=== PATIENT | female | born 1980 | race Caucasian/White ===

== ENCOUNTER 2018-08-08 15:59 | Emergency (ER) | payer MEDICAID ==
--- NOTE | 2018-08-08 16:21 | EDPHY ---
H & P Stated Complaint: slipped off step stool and hurt lt Time Seen by Provider: 08/08/18 16:02 HPI/ROS: 38 yo F presents c/o left foot pain after stepping/falling off a ladder earlier today. Review of systems As per HPI General no fever no chills no weakness HEENT no eye pain no eye discharge. No eye redness, no sore throat Respiratory no cough, no shortness of breath Cardiac no chest pain, no peripheral edema GI no abdominal pain, no diarrhea, no constipation, no nausea, no vomiting no flank pain, no hematuria, no dysuria Musculoskeletal no myalgias, positive joint pain Heme no easy bruising, no easy bleeding Endo no polyuria, no polydipsia Skin no rashes, no pruritus Neuro no syncope, no dizziness, no headaches Psych is no suicidal ideation, no homicidal ideation Source: Patient Exam Limitations: No limitations - Personal History LMP (Females 10-55): Over 28 Days Ago Current Tetanus Diphtheria and Acellular Pertussis (TDAP): Yes - Medical/Surgical History Hx Asthma: Yes Hx Chronic Respiratory Disease: No Hx Diabetes: No Hx Cardiac Disease: No Hx Renal Disease: No Hx Cirrhosis: No Hx Alcoholism: No Hx HIV/AIDS: No Hx Splenectomy or Spleen Trauma: No Other PMH: med hx-+mrsa 11/2014. surg-rt breast -cyst,tubal ligation - Family History Significant Family History: No pertinent family hx - Social History Smoking Status: Unknown if ever smoked Alcohol Use: Occasionally Drug Use: None - Physical Exam Exam: 38-year-old female Alert and oriented in no acute distress nontoxic appearance afebrile Atraumatic normocephalic Extraocular muscles intact, anicteric Neck is supple Lungs clear to auscultation no respiratory distress Heart regular rate and rhythm without murmur rub or gallop Abdomen normoactive bowel sounds Extremities no cyanosis clubbing or edema Left foot/ankle ositive tenderness to palpation at left 5th proximal metatarsal , no instability, sensation intact, good capillary refill, dorsalis pedis and posterior tibialis intact, minimal swelling Constitutional: Initial Vital Signs Temperature (C) 36.6 C 08/08/18 16:05 Heart Rate 100 08/08/18 16:05 Respiratory Rate 18 08/08/18 16:05 Blood Pressure 113/78 08/08/18 16:05 O2 Sat (%) 97 08/08/18 16:05 O2 Delivery Mode Room Air Allergies/Adverse Reactions: No Known Allergies Allergy (Verified 03/27/15 21:04) Home Medications: Medication Instructions Recorded Albuterol Hfa Anes Only 03/27/15 Hydrocodone/APAP 325 [[facility] 1 - 2 tab PO Q4PRN PRN #15 tab 03/27/15 5/325 (*)] Medical Decision Making - Diagnostics Imaging Results: Imaging Impressions Foot X-Ray 08/08/18 16:16 Impression: 1. Nondisplaced fracture distal phalanx left fifth toe. ED Course/Re-evaluation: Patient seen and evaluated for left foot pain Left foot x-ray non displaced fracture distal 5th phalanx Impression foot sprain, left pt has no swelling or tenderness at distal 5th phalanx, so suspect this is not a true fracture Plan TRU little f/u pcp or podiatry Differential Diagnosis: Differential diagnosis considered but not limited to Foot sprain, ankle sprain, foot contusion, 5th metatarsal fracture Departure - Departure Disposition: Home, Routine, Self-Care Clinical Impression: Sprain of left foot Condition: Good Instructions: Foot Sprain (ED) Additional Instructions: rest, ice , elevation use boot for a few days until feeling more comfortable if you do not have significant improvement in the next 3-7 days, follow up with your primary clinic or with podiatry Referrals: NONE *PRIMARY CARE P,. [Primary Care Provider] - As per Instructions Eleonora Blankenship DPM [Doctor of Podiatric Medicine] - As per Instructions
[2018-08-08 17:12] VITALS: BP 122/62
== END 2018-08-08 17:08 | disposition home or self-care (01) ==
LOC: CED 15:59
DX: S92.535A Nondisplaced fracture of distal phalanx of left lesser toe(s), initial encounter for closed fracture (principal); S93.602A Unspecified sprain of left foot, initial encounter; Z86.14 Personal history of Methicillin resistant Staphylococcus aureus infection; W10.8XXA Fall (on) (from) other stairs and steps, initial encounter; Y92.9 Unspecified place or not applicable; Y93.9 Activity, unspecified; Y99.9 Unspecified external cause status
CPT/HCPCS: 73630-PO; L4386